=== PATIENT | male | born 1950 | race Caucasian/White ===

== ENCOUNTER 2019-07-29 07:31 | Outpatient (CLI) | payer MEDICARE, SELFPAY ==
--- NOTE | 2019-07-29 | EST_ITS ---
Patient Info Name: Sherwin Caldwell Age: 68 years : 1950 Gender: Male Ht: 70 in Wt: 207 lbs BSA: 2.18 m2 Exam Date: 07/29/2019 8:52 AM Exam Location: 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 Summary 1. Normal sinus rhythm - normal ECG. 2. No abnormal ST/T wave changes with exercise. 3. Occasional PVCs. 4. Negative stress test at 92% APMHR. 5. Nuclear images to be reported by radiology. Protocol: [facility] Stress ECG Details Stage: REST Duration (min): 6 min : 16 sec Speed (mph): 0.0 Grade (%): 0 HR (bpm): 60 SBP (mmHg): 148 DBP (mmHg): 80 METS: --- Stage: REST Duration (min): 17 min : 57 sec Speed (mph): 0.0 Grade (%): 0 HR (bpm): 62 SBP (mmHg): 148 DBP (mmHg): 80 METS: --- Stage: STAGE 1 Duration (min): 1 min : 0 sec Speed (mph): 1.7 Grade (%): 10 HR (bpm): 89 SBP (mmHg): 148 DBP (mmHg): 80 METS: --- Stage: STAGE 1 Duration (min): 2 min : 0 sec Speed (mph): 1.7 Grade (%): 10 HR (bpm): 97 SBP (mmHg): 148 DBP (mmHg): 80 METS: --- Stage: STAGE 1 Duration (min): 3 min : 0 sec Speed (mph): 1.7 Grade (%): 10 HR (bpm): 99 SBP (mmHg): 182 DBP (mmHg): 72 METS: --- Stage: STAGE 2 Duration (min): 1 min : 0 sec Speed (mph): 2.5 Grade (%): 12 HR (bpm): 108 SBP (mmHg): 182 DBP (mmHg): 72 METS: --- Stage: STAGE 2 Duration (min): 2 min : 0 sec Speed (mph): 2.5 Grade (%): 12 HR (bpm): 112 SBP (mmHg): 195 DBP (mmHg): 72 METS: --- Stage: STAGE 2 Duration (min): 3 min : 0 sec Speed (mph): 2.5 Grade (%): 12 HR (bpm): 114 SBP (mmHg): 195 DBP (mmHg): 72 METS: --- Stage: STAGE 3 Duration (min): 1 min : 0 sec Speed (mph): 3.4 Grade (%): 14 HR (bpm): 125 SBP (mmHg): 251 DBP (mmHg): 90 METS: --- Stage: STAGE 3 Duration (min): 2 min : 0 sec Speed (mph): 3.4 Grade (%): 14 HR (bpm): 131 SBP (mmHg): 241 DBP (mmHg): 79 METS: --- Stage: STAGE 3 Duration (min): 3 min : 0 sec Speed (mph): 3.4 Grade (%): 14 HR (bpm): 140 SBP (mmHg): 222 DBP (mmHg): 80 METS: --- Stage: RECOVERY Duration (min): 0 min : 59 sec Speed (mph): 0.0 Grade (%): 0 HR (bpm): 129 SBP (mmHg): 199 DBP (mmHg): 75 METS: --- Stage: RECOVERY Duration (min): 1 min : 59 sec Speed (mph): 0.0 Grade (%): 0 HR (bpm): 104 SBP (mmHg): 199 DBP (m
--- NOTE | ~2019-07-29 | NM_ITS ---
EXAMINATION: NM stress w perf spect multi DATE: 07/29/2019 10:47 INDICATION: Coronary artery disease TECHNIQUE: Rest images were obtained following intravenous administration of 9.8 mCi Tc99m tetrofosmi n (Trapster). The patient performed an exercise activity. At peak exercise, 30.5 mCi Tc99m tetrofosmin (Myoview) was administered intravenously, and stress images were obtained. Data was reconstructed in to short axis and horizontal and vertical long axis SPECT images. Gated SPECT images were also obtain ed. COMPARISON: None. FINDINGS: Small region of mild reversible decreased perfusion consistent with ischemia in the mid inferolateral segment. No fixed perfusion defects to suggest infarct. There is normal left ventricular chamber si ze, wall motion and ejection fraction. Left ventricular ejection fraction measures 56%. IMPRESSION: 1. Small region of mild reversible ischemia in the mid inferolateral segment. 2. Left ventricular ejection fraction measuring 56%. Reviewed, dictated and finalized at location A.
== END 2019-07-29 07:32 | disposition home or self-care (01) ==
PROVIDERS: PCP Internal Medicine; Visit Provider Internal Medicine
DX: I25.10 Atherosclerotic heart disease of native coronary artery without angina pectoris (principal)
CPT/HCPCS: 78452; 93017; A9502

== ENCOUNTER → 2022-04-04 08:58 | Outpatient (CLI) | payer MEDICARE, SELFPAY ==
--- NOTE | ~2022-04-04 | XR_ITS ---
XR ankle LT min 3V DATE: 04/04/2022 09:12 INDICATION: Heel pain for several months. No injury. TECHNIQUE: 4 views of left ankle COMPARISON: None FINDINGS: There is mild plantar and moderate posterior calcaneal enthesopathy without associated eros harpreet change or periostitis. No fracture or dislocation of the ankle or disruption of the ankle mortise. No periosteal reaction or bone destruction. IMPRESSION: Plantar and posterior calcaneal enthesopathy Reviewed, dictated and finalized at location B. REACH OPERATOR
--- NOTE | ~2022-04-04 | XR_ITS ---
XR foot LT min 3V DATE: 04/04/2022 09:12 INDICATION: Heel pain for several months. No injury TECHNIQUE: 4 views COMPARISON: None FINDINGS: Moderate plantar and prominent posterior calcaneal enthesopathy without erosive change or p eriostitis. Hammertoe deformities of second through fifth digits. No fracture or dislocation, periosteal reaction or bone destruction. No erosive change. Mild joint space target the first metatarsophalangeal joint. IMPRESSION: Plantar and posterior calcaneal enthesopathy Mild joint space target first metatarsophalangeal joint Reviewed, dictated and finalized at location B. ESS CONTROLLER
== END ==
PROVIDERS: PCP Internal Medicine; Visit Provider Internal Medicine
DX: M77.32 Calcaneal spur, left foot (principal)
CPT/HCPCS: 73610; 73630

== ENCOUNTER 2022-08-25 09:46 | Outpatient (CLI) | payer MEDICARE, SELFPAY ==
--- NOTE | ~2022-08-25 | XR_ITS ---
XR hip RT min 3V w AP pelvis DATE: 08/25/2022 10:24 INDICATION: Right hip pain TECHNIQUE: AP pelvis. AP, lateral, crosstable lateral views of right hip COMPARISON: None FINDINGS: Rotatory lumbar dextroscoliosis. Multilevel degenerative disc disease of the lumbar and lum bosacral spine. The pubic symphysis and sacroiliac joints are intact. No pelvic fracture or bone destruction. Hip joint spaces are symmetric and relatively preserved. No fracture or dislocation, avascular necros is or bone destruction of the right hip. IMPRESSION: Rotatory dextroscoliosis of the lumbar spine Severe degenerative disc disease of the lumbar and lumbosacral spine Reviewed, dictated and finalized at location B.
--- NOTE | ~2022-08-25 | XR_ITS ---
XR lumbar spine 2-3V DATE: 08/25/2022 10:24 INDICATION: Low back pain radiating to right hip TECHNIQUE: Flexion and extension lateral views COMPARISON: None FINDINGS: There is severe degenerative disc disease throughout and L2-3 through L5-S1. Osteopenia. No fracture or spondylolisthesis or bone destruction is evident on this limited 2 view examination. T here is no evidence of instability on flexion or extension. Abdominal aortic calcification. IMPRESSION: Severe degenerative disc disease at L2-3 through L5-S1 Osteopenia Reviewed, dictated and finalized at location B.
== END 2022-08-25 09:47 | disposition home or self-care (01) ==
PROVIDERS: PCP Internal Medicine; Visit Provider Internal Medicine
DX: M51.36 Other intervertebral disc degeneration, lumbar region (principal); M51.37 Other intervertebral disc degeneration, lumbosacral region; M85.88 Other specified disorders of bone density and structure, other site
CPT/HCPCS: 72100; 73502

== ENCOUNTER 2022-09-21 07:13 | Outpatient (CLI) | payer MEDICARE, SELFPAY ==
--- NOTE | ~2022-09-21 | MR_ITS ---
MRI of the lumbar spine Clinical History: Back pain Technique: Axial T2-weighted images, and sagittal T1-weighted, T2-weighted, and and T2 fat-sat images were acquired. Findings: There is no fracture or sublocation of the lumbar spine. There is mild dextro scoliosis. Th ere are mild reactive marrow signal changes due to areas of degenerative disc disease, most and witho ut the L3-L4 and L4-L5 disc spaces. No suspicious bone marrow signal abnormality seen. At L1-L2, there is no disc bulge or herniation. There is mild to moderate facet arthropathy. No spina l canal stenosis or definite neural foraminal narrowing. At L2-L3, there is advanced degenerative disc narrowing. There is mild disc ossify complex with mild to moderate facet arthropathy. No central canal stenosis. There is mild to moderate left neural tacos inal narrowing. Right neural foramen preserved. At L3-L4, there is advanced degenerative disc narrowing. There is diffuse disc bulge and advanced fac et arthropathy, with right lateral recess stenosis. There is moderate right neural foraminal narrowin g and mild left neural foraminal narrowing. At L4-L5, there is advanced degenerative disc narrowing with mild diffuse disc bulge. There is modera te to advanced facet arthropathy bilaterally. No central canal stenosis. There is mild right neural f oraminal narrowing. At L5-S1, there is moderate to advanced degenerative disc narrowing. There is minimal disc bulge and minimal facet degenerative change. No central canal stenosis. There is mild right neural foraminal na rrowing. Paravertebral soft tissues are unremarkable. Impression: Moderate degenerative spondylitic changes, as detailed above. Reviewed, dictated and finalized at [facility]. Impression: Moderate degenerative spondylitic changes, as detailed above.
== END 2022-09-21 07:14 | disposition home or self-care (01) ==
PROVIDERS: PCP Internal Medicine; Visit Provider Internal Medicine
DX: R93.7 Abnormal findings on diagnostic imaging of other parts of musculoskeletal system (principal); M41.86 Other forms of scoliosis, lumbar region; M85.80 Other specified disorders of bone density and structure, unspecified site; M51.36 Other intervertebral disc degeneration, lumbar region
CPT/HCPCS: 72148

== ENCOUNTER 2022-10-14 13:19 | Outpatient (CLI) | payer MEDICARE, SELFPAY ==
--- NOTE | ~2022-10-14 | MR_ITS ---
EXAMINATION: MR hip RT wo con DATE: 10/14/2022 14:16 INDICATION: Abnormal findings on diagnostic imaging. TECHNIQUE: Magnetic resonance imaging (MRI) of the right hip was performed without intravenous contra st. COMPARISON: Pelvis and right hip radiographs 08/25/2022 FINDINGS: Bones/cartilage: There is lumbar dextroscoliosis and severe spondylosis. No fracture. There is decreased femoral head/ neck offset anterolaterally on both sides, which may be seen with femoral acetabular impingement. The hip joints demonstrate tiny osteophytes. Small [id number] images of right hip demonstrate partial -thickness cartilage loss. Labrum: The right acetabular labrum is intact. Fluid: There is a small right hip joint effusion. There is mild bilateral trochanteric bursitis. Soft tissues: The prostate is mildly enlarged. There is a partial tear of right gluteus minimus tendon. Right glute us medius tendon is normal. Left gluteus minimus and gluteus medius tendons are normal. There is mild tendinopathy of the hamstring origins bilaterally. The iliopsoas tendons are normal. IMPRESSION: 1. Mild osteoarthritis of the hips. 2. Small right hip joint effusion. 3. Partial tear of right gluteus minimus tendon. Reviewed, dictated and finalized at location A.
== END 2022-10-14 13:20 | disposition home or self-care (01) ==
PROVIDERS: PCP Internal Medicine; Visit Provider Internal Medicine
DX: M41.86 Other forms of scoliosis, lumbar region (principal); M54.50 Low back pain, unspecified; M79.606 Pain in leg, unspecified; M85.80 Other specified disorders of bone density and structure, unspecified site; R93.7 Abnormal findings on diagnostic imaging of other parts of musculoskeletal system
CPT/HCPCS: 73721

== ENCOUNTER 2022-12-04 08:31 | Outpatient (CLI) | payer MEDICARE, SELFPAY ==
--- NOTE | ~2022-12-04 | XR_ITS ---
EXAMINATION: XR lg joint inject/asp w image DATE: 12/04/2022 09:16 INDICATION: Right hip pain. TECHNIQUE: A time-out was performed to verify the patient's name, date of , and procedure to b e performed. The procedure including the risks, benefits, and alternatives was discussed with the pat ient. Risks discussed included bleeding and infection. The patient understood the risks and agreed to proceed. The skin overlying the right hip joint was prepped and draped in usual sterile fashion. A nesthetic was administered with 1% lidocaine subcutaneously. A 22 G needle was advanced under fluoro scopic guidance into the joint. Subsequently, injectate consisting of 5 mL 1% lidocaine and 2 mL 10 mg/mL Kenalog was instilled. The needle was removed and the entry site was cleaned and dressed. The re were no immediate complications. Fluoroscopy exposure time was 0.1 minutes. The total number of im ages was 1. FINDINGS: Real-time fluoroscopy demonstrates the needle in the right hip joint. Patient's pain prior to procedure:07/14. Patient's pain following the procedure: 05/16. IMPRESSION: 1. Fluoroscopy guided right hip joint injection of local anesthetic and steroid with decrease in the patient's presenting pain. Reviewed, dictated and finalized at location A.
== END 2022-12-04 08:32 | disposition home or self-care (01) ==
PROVIDERS: PCP Internal Medicine; Visit Provider Orthopaedic Surgery
DX: M25.551 Pain in right hip (principal); M25.851 Other specified joint disorders, right hip
CPT/HCPCS: 20610; 77002; J3301

== ENCOUNTER 2023-02-05 02:35 | Day surgery (SDC) | payer MEDICARE, SELFPAY ==
[2023-01-25 09:40] VITALS: BMI 27.0
[2023-02-05 12:14] VITALS: BP 134/63; PULSE 73; RESP 18; TEMP 36.2; O2SAT 99
[2023-02-05] MEDS: LACTATED RINGERS 1,000 ML 150 ML IV CONT (12:24)
[2023-02-05 12:27] LABS: Glucose Point of Care 90 mg/dl (65-105)
--- NOTE | 2023-02-05 13:19 | PM.HPGS ---
History of Present Illness History of Present Illness Consent: Risks, benefits, and alternatives have been discussed and questions answered. Patient agrees to proceed with procedure. Chief complaint: anemia unspecified, iron deficiency anemia Narrative: Sherwin Caldwell Sr. is a 72 year old male referred for investigation of anemia. Recent hemoglobin was 12.7, down from 13.8 last year Review of Systems Review of Systems: All systems reviewed & are unremarkable except as noted in HPI and below PMFSH Past Medical History Medical History A-fib Abnormal finding of blood chemistry, unspecified Abnormal stress test Alopecia Bilateral foot pain Blood typing encounter BMI 27.0-27.9,adult BMI 29.0-29.9,adult BMI 30.0-30.9,adult Colon cancer screening DJD (degenerative joint disease), lumbar Elevated homocysteine Encounter for Medicare annual wellness exam Encounter for routine adult health examination with abnormal findings Encounter for routine adult health examination without abnormal findings Erectile dysfunction Follow up Hyperlipidemia Hypothyroidism (acquired) Left otitis media Low hemoglobin On termite inspector drug therapy Pre-diabetes Right groin pain Right hip pain Right otitis media Syncope and collapse Vitamin D deficiency Surgical History Surgical History History of appendectomy History of rhinoplasty History of tonsillectomy Family History Family History Father Acute myocardial infarction Family history of cardiovascular disease Family history of dementia Family history of heart disease in male family member before age 55 Mother Family history of blood dyscrasia Other Family history of hemochromatosis Social History Social History Smoking status: Never smoker Alcohol intake: current Drinks per week: 1 Alcohol use details: occasional Substance use: never Substance use type: does not use Lack of Transportation: No Lack of Food: Never True Current Housing: I Have Housing Concerned About Future Housing: No Difficulty Paying Gas/Electric Bills: No Difficulty Paying for Meds: No Currently Unemployed: No Education: Master's Degree or Higher Difficulty w/ Childcare or Family Care: No Living arrangements: with family Occupation/Education: retired Gender identity (if verbalized by the patient): Male Spiritual care concerns: No Meds Home Medications and Allergies Home Medications Medication Instructions Recorded Confirmed Type coenzyme Q10 100 mg capsule 100 mg PO DAILY 05/05/19 01/25/23 History (CoQ-10) folic acid 1 mg tablet 1 mg PO DAILY 05/05/19 01/25/23 History mecobalamin (vitamin B12) 1,000 1,000 mcg sublingual DAILY 05/05/19 01/25/23 History mcg disintegrating tablet,sublingual multivitamin 1 tablet PO DAILY 05/05/19 01/25/23 History omega-3 fatty acids 1,000 mg 1,000 mg PO BID 05/05/19 01/25/23 History capsule (Fish Oil Concentrate) minoxidil 5 % topical foam 1 % topical DAILY 07/30/19 01/25/23 History (Rogaine) azelastine 137 mcg (0.1 %) nasal See Rx Instructions .Route 02/13/22 01/25/23 Rx spray aerosol .COMPLEX #60 mL sildenafil 100 mg tablet 100 mg PO DAILY PRN sexual 04/04/22 01/25/23 Rx activity #8 tabs apixaban 5 mg tablet (Eliquis) See Rx Instructions .Route 10/03/22 01/25/23 Rx .COMPLEX #180 tabs levothyroxine 100 mcg tablet See Rx Instructions .Route 10/27/22 01/25/23 Rx .COMPLEX #90 tabs rosuvastatin 20 mg tablet See Rx Instructions .Route 10/27/22 01/25/23 Rx .COMPLEX #90 tabs cholecalciferol (vitamin D3) 100 100 mcg PO DAILY 01/03/23 01/25/23 History mcg (4,000 unit) tablet levocetirizine 5 mg tablet (Xyzal) 5 mg PO DAILY 01/04/23 01/25/23 History metformin 500 mg tablet See Rx In
--- NOTE | 2023-02-05 13:29 | WPDANESEPPF ---
Anes - Initial Pre Proc Eval Procedure: Operation Date: 02/05/23 13:30 Proposed Procedures p Esophagogastroduodenoscopy & Colonoscopy - Trent Ramirez MD Date/Time: 02/05/23 13:29 Surgeon: Trent Ramirez MD Pre Op Diagnosis: anemia unspecified, iron deficiency anemia Patient Data Age: 72 Gender: M Height: 1.78 m Weight: 83.7 kg Last Vital Signs Temp 97.2 F L 02/05/23 12:14 Pulse 73 02/05/23 12:14 Resp 18 02/05/23 12:14 BP 134/63 02/05/23 12:14 Pulse Ox 99 02/05/23 12:14 O2 Del Method Room Air 02/05/23 12:14 Allergies Allergy/AdvReac Type Severity Reaction Status Date / Time Sulfa (Sulfonamide Allergy Unknown Unknown Verified 02/05/23 12:12 Antibiotics) sulfanilamide Allergy Unknown Unknown Verified 02/05/23 12:12 Home Medications Medication Instructions Recorded Confirmed Type coenzyme Q10 100 mg capsule 100 mg PO DAILY 05/05/19 01/25/23 History (CoQ-10) folic acid 1 mg tablet 1 mg PO DAILY 05/05/19 01/25/23 History mecobalamin (vitamin B12) 1,000 1,000 mcg sublingual DAILY 05/05/19 01/25/23 History mcg disintegrating tablet,sublingual multivitamin 1 tablet PO DAILY 05/05/19 01/25/23 History omega-3 fatty acids 1,000 mg 1,000 mg PO BID 05/05/19 01/25/23 History capsule (Fish Oil Concentrate) minoxidil 5 % topical foam 1 % topical DAILY 07/30/19 01/25/23 History (Rogaine) azelastine 137 mcg (0.1 %) nasal See Rx Instructions .Route 02/13/22 01/25/23 Rx spray aerosol .COMPLEX #60 mL sildenafil 100 mg tablet 100 mg PO DAILY PRN sexual 04/04/22 01/25/23 Rx activity #8 tabs apixaban 5 mg tablet (Eliquis) See Rx Instructions .Route 10/03/22 01/25/23 Rx .COMPLEX #180 tabs levothyroxine 100 mcg tablet See Rx Instructions .Route 10/27/22 01/25/23 Rx .COMPLEX #90 tabs rosuvastatin 20 mg tablet See Rx Instructions .Route 10/27/22 01/25/23 Rx .COMPLEX #90 tabs cholecalciferol (vitamin D3) 100 100 mcg PO DAILY 01/03/23 01/25/23 History mcg (4,000 unit) tablet levocetirizine 5 mg tablet (Xyzal) 5 mg PO DAILY 01/04/23 01/25/23 History metformin 500 mg tablet See Rx Instructions .Route 01/09/23 01/25/23 Rx .COMPLEX #270 tabs Laboratory Tests 02/05/23 12:22 POC Capillary Glucose 90 mg/dl (65-105) Patient hx anesthesia problems: none Family hx anesthesia problems: none Results Review: All pre-operative results and documents have been reviewed as part of the pre-operative evaluation. [facility] Past Medical History Medical History A-fib Abnormal finding of blood chemistry, unspecified Abnormal stress test Alopecia Bilateral foot pain Blood typing encounter BMI 27.0-27.9,adult BMI 29.0-29.9,adult BMI 30.0-30.9,adult Colon cancer screening DJD (degenerative joint disease), lumbar Elevated homocysteine Encounter for Medicare annual wellness exam Encounter for routine adult health examination with abnormal findings Encounter for routine adult health examination without abnormal findings Erectile dysfunction Follow up Hyperlipidemia Hypothyroidism (acquired) Left otitis media Low hemoglobin 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
--- NOTE | 2023-02-05 14:09 | SUR.OPER ---
EGD end 1403 COLONOSCOPY END 1410
[2023-02-05 14:25] VITALS: BP 104/63; PULSE 60; RESP 20; O2SAT 97
[2023-02-05 14:35] VITALS: BP 111/73; PULSE 61; RESP 19; O2SAT 96
[2023-02-05 14:45] VITALS: BP 104/72; PULSE 63; RESP 17; O2SAT 97
== END 2023-02-05 14:56 | disposition home or self-care (01) ==
PROVIDERS: PCP Internal Medicine; Visit Provider Internal Medicine Gastroenterology
PROC: 0DJ08ZZ Inspection of Upper Intestinal Tract, Via Natural or Artificial Opening Endoscopic (ICD-10-PCS; CPT 43235; principal; 2023-02-05 13:30)
DX: D50.9 Iron deficiency anemia, unspecified (principal); K25.9 Gastric ulcer, unspecified as acute or chronic, without hemorrhage or perforation; K21.9 Gastro-esophageal reflux disease without esophagitis; K29.70 Gastritis, unspecified, without bleeding; K64.8 Other hemorrhoids; K57.30 Diverticulosis of large intestine without perforation or abscess without bleeding; I48.91 Unspecified atrial fibrillation; E78.5 Hyperlipidemia, unspecified; E03.9 Hypothyroidism, unspecified; R73.03 Prediabetes; E55.9 Vitamin D deficiency, unspecified; Z79.01 Long term (current) use of anticoagulants; Z79.84 Long term (current) use of oral hypoglycemic drugs
CPT/HCPCS: 45378; 43239; 82948; 87081; J2001; J2704; J7120

== ENCOUNTER 2023-06-07 06:52 | Outpatient (CLI) | payer MEDICARE, SELFPAY ==
--- NOTE | ~2023-06-07 | XR_ITS ---
Left Shoulder Technique: AP and scapular Y views were obtained. Clinical History: Pain Findings: No fracture or dislocation is seen. Osseous alignment is anatomic. The glenohumeral and acr omioclavicular joint spaces are preserved. Soft tissues are unremarkable. Impression: Unremarkable left shoulder radiographs. Reviewed, dictated and finalized at [facility]. ER STRIPPER HAND Impression: Unremarkable left shoulder radiographs.
== END 2023-06-07 06:53 | disposition home or self-care (01) ==
PROVIDERS: PCP Internal Medicine; Visit Provider Internal Medicine
DX: M25.512 Pain in left shoulder (principal)
CPT/HCPCS: 73030

== ENCOUNTER 2023-10-09 09:07 | Outpatient (CLI) | payer MEDICARE, SELFPAY ==
--- NOTE | ~2023-10-09 | XR_ITS ---
AP view of the pelvis and AP and lateral views of the bilateral hips Clinical history: Pain Findings: No acute fracture or dislocation is seen. Osseous alignment is anatomic. Bilateral hip and SI joint spaces are preserved. Degenerative spondylosis of the lower lumbar spine noted. Soft tissues are unremarkable. Impression: Degenerative spondylosis of the lower lumbar spine noted. No other significant findings. Reviewed, dictated and finalized at [facility]. Impression: Degenerative spondylosis of the lower lumbar spine noted. No other significant findings.
== END 2023-10-09 09:08 | disposition home or self-care (01) ==
LOC: ANHIMG 09:09
PROVIDERS: PCP Internal Medicine; Visit Provider Orthopaedic Surgery
DX: M47.816 Spondylosis without myelopathy or radiculopathy, lumbar region (principal); M25.551 Pain in right hip; M25.552 Pain in left hip
CPT/HCPCS: 73521

== ENCOUNTER 2024-01-24 01:57 | Day surgery (SDC) | payer MEDICARE, SELFPAY ==
[2024-01-15 08:21] VITALS: BMI 27.3
[2024-01-24] MEDS: LACTATED RINGERS 1,000 ML 150 ML IV CONT (10:07)
[2024-01-24 10:08] VITALS: BP 125/89; PULSE 78; RESP 18; TEMP 36.1; O2SAT 100; BMI 27.3
--- NOTE | 2024-01-24 10:25 | WPDANESEPPF ---
Anes - Initial Pre Proc Eval Procedure: Operation Date: 01/24/24 11:00 Proposed Procedures p Esophagogastroduodenoscopy - Jason Talbot MD Date/Time: 01/24/24 10:25 Surgeon: Jason Talbot MD Pre Op Diagnosis: anemia, Pers. hx. of peptic ulcer Patient Data Age: 73 Gender: M Height: 1.78 m Weight: 86.6 kg Last Vital Signs Temp 97.0 F L 01/24/24 10:08 Pulse 78 01/24/24 10:08 Resp 18 01/24/24 10:08 BP 125/89 01/24/24 10:08 Pulse Ox 100 01/24/24 10:08 O2 Del Method Room Air 01/24/24 10:08 Allergies Allergy/AdvReac Type Severity Reaction Status Date / Time Sulfa (Sulfonamide Allergy Unknown Unknown Verified 01/24/24 09:53 Antibiotics) sulfanilamide Allergy Unknown Unknown Verified 01/24/24 09:53 Home Medications Medication Instructions Recorded Confirmed Type coenzyme Q10 100 mg capsule 100 mg PO DAILY 05/05/19 01/24/24 History (CoQ-10) folic acid 1 mg tablet 1 mg PO DAILY 05/05/19 01/24/24 History mecobalamin (vitamin B12) 1,000 1,000 mcg sublingual DAILY 05/05/19 01/24/24 History mcg disintegrating tablet,sublingual multivitamin 1 tablet PO DAILY 05/05/19 01/24/24 History omega-3 fatty acids 1,000 mg 1,000 mg PO BID 05/05/19 01/24/24 History capsule (Fish Oil Concentrate) minoxidil 5 % topical foam 1 % topical DAILY 07/30/19 01/24/24 History (Rogaine) sildenafil 100 mg tablet 100 mg PO DAILY PRN sexual 04/04/22 01/24/24 Rx activity #8 tabs cholecalciferol (vitamin D3) 100 100 mcg PO DAILY 01/03/23 01/24/24 History mcg (4,000 unit) tablet levocetirizine 5 mg tablet (Xyzal) 5 mg PO DAILY 01/04/23 01/24/24 History levothyroxine 100 mcg tablet See Rx Instructions .Route 05/21/23 01/24/24 Rx .COMPLEX #90 tabs rosuvastatin 20 mg tablet See Rx Instructions .Route 05/21/23 01/24/24 Rx .COMPLEX #90 tabs azelastine 137 mcg (0.1 %) nasal 137 mcg intranasal Q12H 06/01/23 01/24/24 History spray apixaban 5 mg tablet (Eliquis) See Rx Instructions .Route 06/22/23 01/24/24 Rx .COMPLEX #180 tabs hydrocodone 5 mg-acetaminophen 325 1 tablet PO Q4-6H PRN pain #25 tabs 10/10/23 01/24/24 Rx mg tablet pantoprazole 40 mg tablet,delayed 40 mg PO QAM #90 tabs 10/22/23 01/24/24 Rx release metformin 500 mg tablet See Rx Instructions .Route 01/08/24 01/24/24 Rx .COMPLEX #270 tabs Patient hx anesthesia problems: none Family hx anesthesia problems: none Results Review: All pre-operative results and documents have been reviewed as part of the pre-operative evaluation. [facility] Past Medical History Medical History A-fib Abnormal finding of blood chemistry, unspecified Abnormal stress test Alopecia Bilateral foot pain Blood typing encounter BMI 27.0-27.9,adult BMI 29.0-29.9,adult BMI 30.0-30.9,adult Colon cancer screening DJD (degenerative joint disease), lumbar Elevated homocysteine Encounter for Medicare annual wellness exam Encounter for routine adult health examination with abnormal findings Encounter for routine adult health examination without abnormal findings Erectile dysfunction Follow up Hyperlipidemia Hypothyroidism (acquired) Left hip pain Left otitis media Left shoulder pain Low hemoglobin Low hemoglobin and low hematocrit On terminal operations supervisor drug therapy Pre-diabetes Right groin pain Right hip pain Right otitis media Squamous cell carcinoma Syncope and collapse Vitamin D deficiency Surgical History Surgical History History of appendectomy History of rhinoplasty History of tonsillectomy Family History Family History Father Acute myocardial infarction Family history of cardiovascular disease Family history of dementia Family history of heart disease in male family member before age 55 Mother Family history of blood d
[2024-01-24 10:49] LABS: Glucose Point of Care 104 mg/dl (65-105)
--- NOTE | 2024-01-24 10:56 | PM.HPGS ---
History of Present Illness History of Present Illness Consent: Risks, benefits, and alternatives have been discussed and questions answered. Patient agrees to proceed with procedure. Chief complaint: anemia, Pers. hx. of peptic ulcer Narrative: Sherwin Caldwell Sr. is a 73 year old male here for egd, last year had egd and colonoscopy because mild anemia, found to have small gastric ulcers. Here again with mild anemia, no overt gib but + FOBT, just recently started using PPI again. Review of Systems Review of Systems: All systems reviewed & are unremarkable except as noted in HPI and below PMFSH Past Medical History Medical History A-fib Abnormal finding of blood chemistry, unspecified Abnormal stress test Alopecia Bilateral foot pain Blood typing encounter BMI 27.0-27.9,adult BMI 29.0-29.9,adult BMI 30.0-30.9,adult Colon cancer screening DJD (degenerative joint disease), lumbar Elevated homocysteine Encounter for Medicare annual wellness exam Encounter for routine adult health examination with abnormal findings Encounter for routine adult health examination without abnormal findings Erectile dysfunction Follow up Hyperlipidemia Hypothyroidism (acquired) Left hip pain Left otitis media Left shoulder pain Low hemoglobin Low hemoglobin and low hematocrit On terminal operations supervisor drug therapy Pre-diabetes Right groin pain Right hip pain Right otitis media Squamous cell carcinoma Syncope and collapse Vitamin D deficiency Surgical History Surgical History History of appendectomy History of rhinoplasty History of tonsillectomy Family History Family History Father Acute myocardial infarction Family history of cardiovascular disease Family history of dementia Family history of heart disease in male family member before age 55 Mother Family history of blood dyscrasia Other Family history of hemochromatosis Social History Social History Smoking status: Former smoker Tobacco type: cigarettes Additional smoking assessment comments: smoked as a teen Alcohol intake: current Drinks per week: 1 Alcohol use details: rarely Substance use: never Substance use type: does not use Lack of Transportation: No Lack of Food: Never True Current Housing: I Have Housing Concerned About Future Housing: No Difficulty Paying Gas/Electric Bills: No Difficulty Paying for Meds: No Currently Unemployed: No Education: Master's Degree or Higher Difficulty w/ Childcare or Family Care: No Living arrangements: with family Occupation/Education: retired Gender identity (if verbalized by the patient): Male Spiritual care concerns: No Meds Home Medications and Allergies Home Medications Medication Instructions Recorded Confirmed Type coenzyme Q10 100 mg capsule 100 mg PO DAILY 05/05/19 01/24/24 History (CoQ-10) folic acid 1 mg tablet 1 mg PO DAILY 05/05/19 01/24/24 History mecobalamin (vitamin B12) 1,000 1,000 mcg sublingual DAILY 05/05/19 01/24/24 History mcg disintegrating tablet,sublingual multivitamin 1 tablet PO DAILY 05/05/19 01/24/24 History omega-3 fatty acids 1,000 mg 1,000 mg PO BID 05/05/19 01/24/24 History capsule (Fish Oil Concentrate) minoxidil 5 % topical foam 1 % topical DAILY 07/30/19 01/24/24 History (Rogaine) sildenafil 100 mg tablet 100 mg PO DAILY PRN sexual 04/04/22 01/24/24 Rx activity #8 tabs cholecalciferol (vitamin D3) 100 100 mcg PO DAILY 01/03/23 01/24/24 History mcg (4,000 unit) tablet levocetirizine 5 mg tablet (Xyzal) 5 mg PO DAILY 01/04/23 01/24/24 History levothyroxine 100 mcg tablet See Rx Instructions .Route 05/21/23 01/24/24 Rx .COMPLEX #90 tabs rosuvastatin 20 mg tablet See Rx Instructions .R
[2024-01-24 11:14] VITALS: BP 108/71; PULSE 86; RESP 20; O2SAT 97
[2024-01-24 11:24] VITALS: BP 123/76; PULSE 78; RESP 20; O2SAT 96
[2024-01-24 11:34] VITALS: BP 133/80; PULSE 84; RESP 20; O2SAT 98
== END 2024-01-24 11:41 | disposition home or self-care (01) ==
PROVIDERS: PCP Internal Medicine; Visit Provider Internal Medicine Gastroenterology
PROC: 0DJ08ZZ Inspection of Upper Intestinal Tract, Via Natural or Artificial Opening Endoscopic (ICD-10-PCS; CPT 43235; principal; 2024-01-24 11:00)
DX: R19.5 Other fecal abnormalities (principal); K29.70 Gastritis, unspecified, without bleeding; D64.9 Anemia, unspecified; E78.5 Hyperlipidemia, unspecified; E03.9 Hypothyroidism, unspecified; R73.03 Prediabetes; E55.9 Vitamin D deficiency, unspecified; I48.91 Unspecified atrial fibrillation; M51.36 Other intervertebral disc degeneration, lumbar region; N52.9 Male erectile dysfunction, unspecified; Z79.01 Long term (current) use of anticoagulants; Z79.84 Long term (current) use of oral hypoglycemic drugs; Z79.891 Long term (current) use of opiate analgesic; Z98.890 Other specified postprocedural states; Z87.891 Personal history of nicotine dependence; Z87.11 Personal history of peptic ulcer disease; Z85.828 Personal history of other malignant neoplasm of skin; Z82.49 Family history of ischemic heart disease and other diseases of the circulatory system
CPT/HCPCS: 43239; 82948; 88305; J2704; J7120

== ENCOUNTER 2024-04-23 07:05 | Outpatient (CLI) | payer MEDICARE, SELFPAY ==
[2024-04-23 07:27] LABS: Hematocrit 38.9 % (42.0-52.0); Hemoglobin 12.5 g/dL (14.0-18.0)
[2024-04-23 07:37] LABS: Anion Gap 6 mmol/L (4-12); Blood Urea Nitrogen 20 mg/dL (9-20); Calcium 9.4 mg/dL (8.4-10.2); Carbon Dioxide 26 mmol/L (22-30); Chloride 107 mmol/L (98-107); Estimated Glomerular Filt Rate > 60; Glucose 110 mg/dL (65-110); Potassium 4.1 mmol/L (3.4-5.0); Sodium 139 mmol/L (137-145)
== END 2024-04-23 07:06 | disposition home or self-care (01) ==
LOC: ANHLAB 07:06
PROVIDERS: PCP Internal Medicine; Visit Provider Anesthesiology
DX: D64.9 Anemia, unspecified (principal); R73.03 Prediabetes
CPT/HCPCS: 36415; 80048; 85014; 85018

== ENCOUNTER 2024-05-02 07:00 | Outpatient (NON) | payer MEDICARE, SELFPAY | END 2024-05-02 07:01 | disposition home or self-care (01) | LOC: ANHLAB 05-05 07:35 | PROVIDERS: PCP Internal Medicine; Visit Provider Podiatrist Foot & Ankle Surgery | DX: M79.671 Pain in right foot (principal) | CPT/HCPCS: 88304 ==

== ENCOUNTER 2024-05-02 07:57 | Day surgery (SDC) | payer MEDICARE, SELFPAY ==
[2024-04-16 14:26] VITALS: BMI 27.5
--- NOTE | 2024-05-01 09:50 | WPDANESEPPF ---
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 Patient Data Age: 73 Gender: M Height: 1.78 m Weight: 87 kg Allergies Allergy/AdvReac Type Severity Reaction Status Date / Time Sulfa (Sulfonamide Allergy Intermediate Rash Verified 05/02/24 08:14 Antibiotics) sulfanilamide Allergy Intermediate Rash Verified 05/02/24 08:14 Home Medications ?Medication ?Instructions ?Recorded ?Confirmed ?Type coenzyme Q10 100 mg capsule 100 mg PO DAILY 05/05/19 05/02/24 History (CoQ-10) folic acid 1 mg tablet 1 mg PO DAILY 05/05/19 05/02/24 History mecobalamin (vitamin B12) 1,000 1,000 mcg sublingual DAILY 05/05/19 05/02/24 History mcg disintegrating tablet,sublingual multivitamin 1 tablet PO DAILY 05/05/19 05/02/24 History omega-3 fatty acids 1,000 mg 1,000 mg PO BID 05/05/19 05/02/24 History capsule (Fish Oil Concentrate) minoxidil 5 % topical foam 1 % topical DAILY 07/30/19 05/02/24 History (Rogaine) sildenafil 100 mg tablet 100 mg PO DAILY PRN sexual 04/04/22 04/16/24 Rx activity #8 tabs cholecalciferol (vitamin D3) 100 100 mcg PO DAILY 01/03/23 05/02/24 History mcg (4,000 unit) tablet levocetirizine 5 mg tablet (Xyzal) 5 mg PO DAILY 01/04/23 05/02/24 History apixaban 5 mg tablet (Eliquis) See Rx Instructions .Route 06/22/23 05/02/24 Rx .COMPLEX #180 tabs metformin 500 mg tablet See Rx Instructions .Route 01/08/24 05/02/24 Rx .COMPLEX #270 tabs levothyroxine 100 mcg tablet See Rx Instructions .Route 02/06/24 05/02/24 Rx .COMPLEX #90 tabs rosuvastatin 20 mg tablet See Rx Instructions .Route 02/06/24 05/02/24 Rx .COMPLEX #90 tabs azelastine 205.5 mcg (0.15 %) 1 spray intranasal QHS 03/03/24 05/02/24 History nasal spray (Astepro Allergy) pantoprazole 40 mg tablet,delayed See Rx Instructions .Route 04/08/24 05/02/24 Rx release .COMPLEX #90 tabs ferrous sulfate 325 mg (65 mg 325 mg PO DAILY 04/16/24 05/02/24 History iron) tablet Patient hx anesthesia problems: none Family hx anesthesia problems: none Results Review: All pre-operative results and documents have been reviewed as part of the pre-operative evaluation. [facility] Past Medical History Medical History (Updated 05/01/24 @ 09:51 by Prince Simpson DO) Hypothyroidism Diabetes type 2, controlled Gastritis Low hemoglobin and low hematocrit Squamous cell carcinoma Left shoulder pain Left hip pain Low hemoglobin Right groin pain DJD (degenerative joint disease), lumbar Right hip pain Vitamin D deficiency Encounter for routine adult health examination with abnormal findings Bilateral foot pain BMI 27.0-27.9,adult Syncope and collapse Right otitis media Left otitis media Blood typing encounter Pre-diabetes Alopecia Erectile dysfunction Encounter for routine adult health examination without abnormal findings Elevated homocysteine Colon cancer screening BMI 29.0-29.9,adult Abnormal stress test Follow up BMI 30.0-30.9,adult Abnormal finding of blood chemistry, unspecified Encounter for Medicare annual wellness exam On terminal worker drug therapy Hypothyroidism (acquired) A-fib Hyperlipidemia Surgical History Surgical History History of rhinoplasty History of tonsillectomy History of appendectomy Family History Family History Father Acute myocardial infarction Family history of cardiovascular disease Family history of dementia Family history of heart disease in male family member before age 55 Mother Family history of blood dyscrasia Other Family history of hemochromatosis Social History Social History Smoking status: Former smoker Tobacco type: cigarettes Additional smoking assessment comments: smoked as a teen Alcohol intake: current Drinks per week: 1 Alcohol use details: rarely Substance use: never Substance use type: does not use Lack of Transportation: No Lack of Food: Never True Current Housing: I Have Housing Concerned About Future Housing: No Difficulty Paying Gas/Electric Bills: No Difficulty Paying for Meds: No Currently Unemployed: No Education: Master's Degree or Higher Difficulty w/ Childcare or Family Care: No Living arrangements: with family Occupation/Education: retired Gender identity (if verbalized by the patient): Male Spiritual care concerns: No Anes - Eval Final PreProcedure Day of Procedure 05/01/24 09:50 Patient weight: overweight Heart: regular rate and rhythm Lungs: clear to auscultation Airway: Mallampati scale class III Neurological: alert and oriented Last oral intake: >/= 8 hours ASA classification: III Emergent: no Anesthetic plan: proceed Anesthesia type and monitoring: general GIVS and standard monitoring Results Review: All pre-operative results and documents have been reviewed as part of the pre-operative evaluation. Informed Consent: The patient's anesthetic plan and its attendant risks and benefits were discussed with the patient/family/POA. Questions were solicited and answers provided to the satisfaction of the patient/family/POA.
--- NOTE | 2024-05-02 07:13 | WPDHPUPDATE1 ---
History and Physical Update Update Date/Time: 05/02/24 07:13 History and Physical has been reviewed, including an updated exam of the patient. There are NO changes in the patient's condition. Risks, benefits, and alternatives have been discussed and questions answered. Patient agrees to proceed with procedure.
[2024-05-02 08:26] VITALS: BMI 28.0
[2024-05-02 08:27] VITALS: BP 136/82; PULSE 70; RESP 18; TEMP 36.8; O2SAT 97
[2024-05-02] MEDS: LACTATED RINGERS 1,000 ML 30 ML IV CONT (08:47)
[2024-05-02 08:49] LABS: Glucose Point of Care 97 mg/dl (65-105)
--- NOTE | 2024-05-02 09:26 | SUR.PREOP ---
DR DEL RIO NOTIFIED OF PT HAVING A SMALL ABRASION TO TOP OF RT SECOND TOE
[2024-05-02] MEDS: ceFAZolin SODIUM 2 GM/20 ML SW SYRINGE IV PUSH (09:49)
[2024-05-02] MEDS: BUPivacaine HCL 0.5% PF 30 ML VIAL INFILTRATE (09:54)
--- NOTE | 2024-05-02 10:28 | P.OP_ITS ---
Procedure Note - Detailed Date of Procedure 05/02/24 Pre-op Diagnosis Gamboa's Neuroma Right Foot Post-op Diagnosis Same Procedure Performed Excision of Gamboa's Neuroma right foot Surgeon Jason Schmitz Jr., DP Anesthesia General and Local Indications Painful right forefoot Findings Large Amorphous yellow Neuroma third intermetatarsal space Description of Procedure Under mild sedation, the patient was brought in to the operating room, placed on the operating table in the supine position. A pneumatic ankle tourniquet was placed about the patient's ipsilateral ankle. Following IV sedation, local anesthesia was obtained about the ankle utilizing 20 mL of 0.5% Marcaine plain and 2% Lidocaine plain to with an ankle ring block. The foot was then scrubbed, prepped, and draped in the usual aseptic manner. An Esmarch bandage was then used to exsanguinate the patient's foot and the pneumatic ankle tourniquet was then inflated. An incision was made along the dorsal 3rd inter metatarsal space. All bleeders were cauterized as necessary. The Deep transverse intermetatarsal ligament was severed. Next, dissection was continued deep to the proper digital plantar nerve which was hypertrophied and amorphous. It was dissected proximal to the central metatarsal shaft area and transected next the distal branches were dissected and transected to the affected third and fourth digits. The neural tissue was sent for gross and histo. The Deep subcutaneous tissue was reapproximated with 4.0 Vicryl and the skin was reapproximated with 4.0 Monocryl. Upon completion of the procedure, the dorsal incision was dressed with Steri- Strips, Adaptic, 4x4s, Kerlix, and Coban. The pneumatic ankle tourniquet was then deflated and a prompt hyperemic response was noted to all digits of the affected foot. A CAM walker boot was then applied. The patient did very well with the procedure and the anesthesia. The patient was transferred to the recovery room with vital signs stable and vascular status intact to all toes of the affected foot. Following a period of postoperative monitoring, the patient will be discharged home on the following written and oral postoperative instructions: 1. The patient should keep the dressing clean, dry, and intact. Use a cast protector bag with showers. 2. The patient will be strictly protected weight bearing with a surgical shoe. 3. Patient should ice and elevate the foot when at rest. 4. The patient is to contact Dr. Schmitz for all postop care and if any problems arise. 5. Prescriptions were written for Percocet 5/325 dispensed 40 to be taken 1 p.o. q.4-6 hours as needed for severe pain. Estimated Blood Loss 1 Drains No Packing No Pathology Yes (Neuroma sent for gross and histopathology) Complications No immediate complications Condition Stable Disposition Same day
[2024-05-02] MEDS: LIDOCAINE 2% LOCAL INJ 20 ML VIAL 30 ML INFILTRATE (10:29)
[2024-05-02 10:38] VITALS: BP 111/84; PULSE 76; RESP 16; O2SAT 96
--- NOTE | 2024-05-02 10:45 | WPDANESPN ---
Anes - Prog Note Post-Op Date/Time: 05/02/24 10:45 Cardiovascular status: normal Respiratory status: normal Airway patency: baseline Mental status: baseline Post-Op hydration status: normal Vital Signs: Last Vital Signs Temp 36.8 C 05/02/24 08:27 Pulse 70 05/02/24 08:27 Resp 18 05/02/24 08:27 BP 136/82 05/02/24 08:27 Pulse Ox 97 05/02/24 08:27 O2 Del Method Room Air 05/02/24 08:27 Pain Score (VAS): 0 05/02/24 08:41 POC Capillary Glucose 97 Post-procedural complaints: none Patient Feedback: Patient satisfied with anesthetic care. Other Findings: Patient vital signs back to baseline. Patient denies nausea and vomiting. Patient's pain under control. Patient OK for discharge.
[2024-05-02 11:00] VITALS: BP 116/86; PULSE 61; RESP 18; O2SAT 97
[2024-05-02 11:20] VITALS: BP 122/78; PULSE 64; RESP 18; O2SAT 99
== END 2024-05-02 11:41 | disposition home or self-care (01) ==
PROVIDERS: PCP Internal Medicine; Visit Provider Podiatrist Foot & Ankle Surgery
PROC: (CPT 28080; principal; 2024-05-02 09:30)
DX: G57.61 Lesion of plantar nerve, right lower limb (principal)
CPT/HCPCS: 28080

== ENCOUNTER 2024-07-04 07:17 | Outpatient (CLI) | payer MEDICARE, SELFPAY ==
[2024-07-04 09:13] LABS: Free T4 Free Thyroxine 1.48 ng/dL (0.78-2.19)
[2024-07-04 09:17] LABS: Alanine Aminotransferase 17 U/L (6-50); Albumin Level 4.5 g/dL (3.5-5.1); Alkaline Phosphatase 40 U/L (38-126); Anion Gap 10 mmol/L (4-12); Aspartate Amino Transferase 27 U/L (17-59); Bilirubin,Total 0.8 mg/dL (0.2-1.3); Blood Urea Nitrogen 16 mg/dL (9-20); Calcium 9.4 mg/dL (8.4-10.2); Carbon Dioxide 27 mmol/L (22-30); Chloride 101 mmol/L (98-107); Cholesterol 128 mg/dL (0-200); Estimated Glomerular Filt Rate > 60; Glucose 90 mg/dL (65-110); HDL Direct 47 mg/dL; Potassium 4.5 mmol/L (3.4-5.0); Sodium 138 mmol/L (137-145); Triglycerides 117 mg/dL (<150)
[2024-07-04 09:28] LABS: LDL Cholesterol Direct 54 mg/dL
[2024-07-04 09:59] LABS: Folic Acid > 20.0 ng/mL (2.76->20)
[2024-07-04 11:47] LABS: Thyroid Stimulating Hormone 0.224 uIU/mL (0.465-4.680)
== END 2024-07-04 07:18 | disposition home or self-care (01) ==
LOC: ANHLAB 07:17
PROVIDERS: PCP Internal Medicine; Visit Provider Internal Medicine
DX: E78.2 Mixed hyperlipidemia (principal); E03.9 Hypothyroidism, unspecified; E55.9 Vitamin D deficiency, unspecified; R73.03 Prediabetes; R79.89 Other specified abnormal findings of blood chemistry; Z79.899 Other long term (current) drug therapy
CPT/HCPCS: 36415; 80053; 80061; 82306; 82607; 82746; 83036; 84439; 84443

== ENCOUNTER 2025-04-01 06:45 | Outpatient (CLI) | payer MEDICARE, SELFPAY ==
--- NOTE | ~2025-04-01 | XR_ITS ---
XR knee RT min 4V 04/01/2025 07:16 Indication: Right knee pain Procedure: 4 views right knee Comparison: No prior studies for comparison. Findings: Mild tricompartment osteoarthritis. Osteopenia. No significant joint effusion. No foreign bodies. No fracture or traumatic malalignment. Impression: 1: Mild osteoarthritis. Reviewed, dictated and finalized at location O. E FINISHER Impression: 1: Mild osteoarthritis.
== END 2025-04-01 06:46 | disposition home or self-care (01) ==
PROVIDERS: PCP Internal Medicine; Visit Provider Internal Medicine
DX: M17.11 Unilateral primary osteoarthritis, right knee (principal); R93.89 Abnormal findings on diagnostic imaging of other specified body structures
CPT/HCPCS: 73564